=== PATIENT | male | born 1955 | race Hispanic/Latino ===

== ENCOUNTER → 2017-09-04 | Outpatient (CLI) | payer BC, MEDICARE ==
[~2017-09-04] MED LIST: IOPAMIDOL-370 100 ML VIAL IV ONE; IOPAMIDOL-370 75 ML VIAL IV ONE
== END | disposition home or self-care (01) ==
LOC: OIH 10:23
PROVIDERS: ATTEND Internal Medicine Cardiovascular Disease
DX: I73.9 Peripheral vascular disease, unspecified (principal); I70.0 Atherosclerosis of aorta
CPT/HCPCS: 75635; Q9967 ×2

== ENCOUNTER → 2017-10-09 | Outpatient (CLI) | payer BC, MEDICARE | END | disposition home or self-care (01) | LOC: SHCH 10:55 → EDUNIT# 11:00 | PROVIDERS: ATTEND Internal Medicine Cardiovascular Disease | DX: I87.2 Venous insufficiency (chronic) (peripheral) (principal) | CPT/HCPCS: 93970 ==